=== PATIENT | female | born 1975 | race Two or more races ===

== ENCOUNTER → 2020-01-20 | Emergency (ER) | payer OTHER ==
[~2020-01-20] VITALS: Ht 175.3 cm; Wt 127.0 kg
[~2020-01-20] MED LIST: ATENOLOL50 MG PO; FAMOTIDINE40 MG PO; METRONIDAZOLE500 MG PO
== END | disposition left against medical advice (07) ==
LOC: ER 09:52
DX: Z53.20 Procedure and treatment not carried out because of patient's decision for unspecified reasons (principal)

== ENCOUNTER 2020-08-25 02:28 | Emergency (ER) | payer OTHER ==
[~2020-08-25] VITALS: Ht 175.3 cm; Wt 145.1 kg
[2020-08-25] MEDS ORDERED: FORTAMET1000 MG (02:46)
== END 2020-08-25 10:56 | disposition home or self-care (01) ==
LOC: ER 02:28
DX: A04.9 Bacterial intestinal infection, unspecified (principal); R10.32 Left lower quadrant pain

== ENCOUNTER 2025-01-18 11:27 | Inpatient (IN) | payer OTHER ==
[~2025-01-18] VITALS: Ht 274.3 cm; Wt 126.1 kg
[~2025-01-18 11:27] MED LIST changes: +FORTAMET1000 MG
[2025-01-25] MEDS ORDERED: CEFTRIAXONE SODIUM 2,000 MG VIAL ONE (06:57)
[2025-01-25] MEDS ORDERED: BUPIVACAINE HCL/MPF 0.5% 30ML VIAL ONE (06:57)
[2025-01-25] MEDS ORDERED: METRONIDAZOLE/SODIUM CHLORIDE 500 MG/100 ML PIGGYBACK IV ONE ×2 (06:57→16:18)
[2025-01-25] MEDS ORDERED: LIDOCAINE HCL 1%/EPINEPHRINE 20ML VIAL IJ ONE (06:57)
[2025-01-25] MEDS ORDERED: SUGAMMADEX SODIUM 200 MG/2 ML VIAL IV ONE (09:14)
[2025-01-25] MEDS ORDERED: MORPHINE SULFATE 4 MG/ML CARTRIDGE IV PRN (10:00)
[2025-01-25] MEDS ORDERED: ONDANSETRON HCL 2 MG/ML VIAL IV PRN (10:00)
[2025-01-25] MEDS ORDERED: 0.9 % SODIUM CHLORIDE 1,000 ML IV SCH (10:00)
[2025-01-25] MEDS ORDERED: DEXTROSE 50 % IN WATER 0.5 G/ML DISP.SYRIN IV PRN ×2 (10:00→12:45)
[2025-01-25] MEDS ORDERED: OxyCODONE HCL 5 MG TABLET (ROXICODONE) PO PRN (10:00)
[2025-01-25] MEDS ORDERED: ALBUTEROL SULFATE 3 ML/2.5 MG AMPUL.NEB IH SCH (12:00)
[2025-01-25 12:39] LABS: BASO % 0.4 % (0.1-1.2); EOS # 0.03 (0.04-0.54); EOS % 0.2 % (0.7-7.0); LYMPH # 1.34 (1.18-3.74); LYMPH % 10.7 % (19.3-53.1); MEAN PLATELET VOLUME 9.60 fl (9.4-12.4); MONO # 0.67 (0.24-0.82); MONO % 5.4 % (4.7-12.5); NEUT # 10.33 (1.56-6.13); NEUT % 82.8 % (34.0-71.1); RED CELL DISTRIBUTION WIDTH 11.7 % (11.6-14.4)
[2025-01-25] MEDS ORDERED: INSULIN LISPRO 1,000 UNIT/10 ML UNITS SUBCUTANEO PRN (12:45)
[2025-01-25] MEDS ORDERED: HYOSCYAMINE SULFATE 0.125 MG TAB.SUBL SL SCH (13:00)
[2025-01-25] MEDS ORDERED: ACETAMINOPHEN 500 MG GEL..CAP PO SCH (14:00)
[2025-01-25 14:11] LABS: BUN CREA RATIO 19.0 (7.0-25.0); CREATININE SERUM 0.69 mg/dL (0.55-1.02); GFR 89.34; OSMOLALITY SERUM 288.0 MOSM/KG (275-295)
[2025-01-25 14:16] LABS: GLUCOSE FASTING 211.0 mg/dL (65-100)
[2025-01-25] MEDS ORDERED: GABAPENTIN 300 MG CAPSULE PO ONE (16:18)
[2025-01-25] MEDS ORDERED: HYOSCYAMINE SULFATE 0.125 MG TAB.SUBL ONE (16:18)
[2025-01-25] MEDS ORDERED: METRONIDAZOLE/SODIUM CHLORIDE 500 MG/100 ML PIGGYBACK IV SCH (17:00)
[2025-01-25] MEDS ORDERED: GABAPENTIN 300 MG CAPSULE PO SCH (17:00)
[2025-01-25] MEDS ORDERED: FAMOTIDINE/PF 20 MG/2 ML VIAL IV PUSH SCH (21:00)
[2025-01-25] MEDS ORDERED: MONTELUKAST SODIUM 10 MG TABLET PO SCH (21:00)
[2025-01-25] MEDS ORDERED: CELECOXIB 200 MG CAPSULE PO SCH (21:00)
[2025-01-25 21:10] VITALS: O2SAT 94
[2025-01-26] VITALS (9 sets, daily range): BP systolic 126–172; BP diastolic 73–75; O2SAT 90–98
[2025-01-26 06:33] LABS: BASO % 0.3 % (0.1-1.2); EOS # 0.12 (0.04-0.54); EOS % 1.4 % (0.7-7.0); LYMPH # 2.78 (1.18-3.74); LYMPH % 32.1 % (19.3-53.1); MEAN PLATELET VOLUME 9.60 fl (9.4-12.4); MONO # 0.69 (0.24-0.82); MONO % 8.0 % (4.7-12.5); NEUT # 5.03 (1.56-6.13); NEUT % 58.1 % (34.0-71.1); RED CELL DISTRIBUTION WIDTH 11.6 % (11.6-14.4)
[2025-01-26 06:51] LABS: BUN CREA RATIO 16.0 (7.0-25.0); CREATININE SERUM 0.58 mg/dL (0.55-1.02); GFR 109.17; GLUCOSE FASTING 148.0 mg/dL (65-100); OSMOLALITY SERUM 288.0 MOSM/KG (275-295)
[2025-01-26] MEDS ORDERED: LOSARTAN/HYDROCHLOROTHIAZIDE 1 UDTAB TABLET PO SCH (09:00)
[2025-01-26] MEDS ORDERED: ATENOLOL 50 MG TABLET PO SCH (09:00)
[2025-01-26] MEDS ORDERED: MAGNESIUM SULFATE IN WATER 50 ML IV NR (10:00)
[2025-01-26] MEDS ORDERED: ENOXAPARIN SODIUM 40 MG/0.4 ML SYRINGE SUBCUTANEO SCH (17:00)
[2025-01-27 00:30] VITALS: BP 122/71; O2SAT 99
[2025-01-27 04:00] VITALS: O2SAT 95
[2025-01-27 08:08] VITALS: BP 130/77; O2SAT 97
[2025-01-27 08:35] LABS: BASO % 0.4 % (0.1-1.2); EOS # 0.26 (0.04-0.54); EOS % 3.7 % (0.7-7.0); LYMPH # 1.94 (1.18-3.74); LYMPH % 27.6 % (19.3-53.1); MEAN PLATELET VOLUME 9.60 fl (9.4-12.4); MONO # 0.64 (0.24-0.82); MONO % 9.1 % (4.7-12.5); NEUT # 4.13 (1.56-6.13); NEUT % 58.9 % (34.0-71.1); RED CELL DISTRIBUTION WIDTH 11.6 % (11.6-14.4)
[2025-01-27] MEDS ORDERED: ENOXAPARIN SODIUM 40 MG/0.4 ML SYRINGE SUBCUTANEO SCH (09:00)
[2025-01-27 09:08] LABS: BUN CREA RATIO 15.0 (7.0-25.0); CREATININE SERUM 0.62 mg/dL (0.55-1.02); GFR 101.08; GLUCOSE FASTING 157.0 mg/dL (65-100); OSMOLALITY SERUM 291.0 MOSM/KG (275-295)
[2025-01-27 09:10] VITALS: O2SAT 95
[2025-01-27] MEDS ORDERED: HYOSCYAMINE0.125 M1 SL (09:37)
[2025-01-27] MEDS ORDERED: CELEBREX200MG PO (09:37)
[2025-01-27] MEDS ORDERED: PEPCID AC20 MG PO (09:38)
[2025-01-27] MEDS ORDERED: PERCOCET 5-3251 EACH PO (09:38)
== END 2025-01-27 12:48 | disposition home or self-care (01) | DRG 331 ==
LOC: SURH 01-25 06:00 → O/R 01-25 06:00 → SURH 01-25 07:00
PROVIDERS: Internal Medicine Geriatric Medicine; ADMIT Surgery; ATTEND Surgery
PROC: 0DBP4ZZ Excision of Rectum, Percutaneous Endoscopic Approach (ICD-10-PCS; 2025-01-25)
PROC: 0DTN4ZZ Resection of Sigmoid Colon, Percutaneous Endoscopic Approach (ICD-10-PCS; principal; 2025-01-25 07:00)
DX: K57.32 Diverticulitis of large intestine without perforation or abscess without bleeding (principal); R19.4 Change in bowel habit

== ENCOUNTER 2025-01-30 01:20 | Inpatient (IN) | payer OTHER ==
[~2025-01-30] VITALS: Ht 297.2 cm; Wt 123.8 kg
[~2025-01-30 01:20] MED LIST changes: +CELEBREX200MG PO; +HYOSCYAMINE0.125 M1 SL; +PEPCID AC20 MG PO; +PERCOCET 5-3251 EACH PO
[2025-01-30] MEDS ORDERED: COZAAR100 MG PO (02:03)
--- NOTE | 2025-01-30 02:03 | NUR ---
PACIENTE ALERTA Y ORIENTADA X3. REFIERE VENIR POR DOLOR ABDOMINAL DESDE HOY. REFIERE QUE FUE OPERADA DE LOS INTESTINOS POR DR IRWIN HACEN 4 HUANG. SE ESTIMAN VITALES Y SE UBICA.
[2025-01-30] MEDS ORDERED: PIPERACILLIN/TAZOBACTAM SODIUM 3.375 GM VIAL IV ONE ×3 (03:46→14:39)
[2025-01-30] MEDS ORDERED: MORPHINE SULFATE 2 MG/ML SYRINGE IV ONE (04:00)
--- NOTE | 2025-01-30 04:21 | NUR ---
SE ORIENTA PACIENTE SOBRE TX MEDICO ORDENADO POR . SE COLECTAN MUESTRAS DE LABORATORIOS BAJO MEDIDAS ASEPTCIAS Y SE CANALIZA PACIENTE. SE ADMINISTRA MEDICAMENTO NADER ORDEN MEDICA.
[2025-01-30 04:53] LABS: INR 0.98
[2025-01-30 04:55] LABS: ALT/SGPT 62.0 U/L (12-78); AST/SGOT 41.0 U/L (15-37); BILIRUBIN TOTAL 0.33 mg/dL (0.3-1.2); BUN CREA RATIO 27.0 (7.0-25.0); CREATININE SERUM 0.63 mg/dL (0.55-1.02); GFR 99.23; GLOBULINA 4.3 G/DL (2.4-3.5); GLUCOSE FASTING 156.0 mg/dL (65-100); OSMOLALITY SERUM 284.0 MOSM/KG (275-295)
[2025-01-30] MEDS ORDERED: ONDANSETRON HCL 4 MG in 0.9 % SODIUM CHLORIDE 50 ML IV PRN (07:45)
[2025-01-30] MEDS ORDERED: MORPHINE SULFATE 4 MG/ML CARTRIDGE IV PRN (07:45)
[2025-01-30] MEDS ORDERED: SODIUM CHLORIDE 0.45 % 1,000 ML IV SCH (07:45)
--- NOTE | 2025-01-30 08:44 | NUR ---
PACIENTE ALERTA Y ORIENTADA X3 EN CAMA A NIVEL DE PISO JUNTO CON BARRANDAS ELEVADAS. CANALIZADA CON #[id number] EN RT ARM, PATENTE, KESHAWN DE EDEMA Y ERITEMA Y BAJANDO 0.9NSS A 125ML/HR. PENDIENTE A CONSULTA DR. IRWIN DE CIRUGIA.
[2025-01-30] MEDS ORDERED: FAMOTIDINE/PF 20 MG in 0.9 % SODIUM CHLORIDE 8 ML IV PUSH SCH (09:00)
[2025-01-30] MEDS ORDERED: ENOXAPARIN SODIUM 40 MG/0.4 ML SYRINGE SUBCUTANEO SCH ×2 (09:00→17:00)
[2025-01-30] MEDS ORDERED: POLYETHYLENE GLYCOL 3350 17 GM BLIST.PACK PO SCH (09:28)
[2025-01-30] MEDS ORDERED: ENOXAPARIN SODIUM 40 MG/0.4 ML SYRINGE SUBCUTANEO ONE (10:04)
[2025-01-30] MEDS ORDERED: FAMOTIDINE/PF 20 MG/2 ML VIAL ONE (10:04)
[2025-01-30] MEDS ORDERED: ONDANSETRON HCL 2 MG/ML VIAL ONE ×2 (10:04→21:24)
[2025-01-30 11:09] LABS: BASO % 0.3 % (0.1-1.2); EOS # 0.34 (0.04-0.54); EOS % 4.8 % (0.7-7.0); LYMPH # 2.24 (1.18-3.74); LYMPH % 31.4 % (19.3-53.1); MEAN PLATELET VOLUME 9.10 fl (9.4-12.4); MONO # 0.67 (0.24-0.82); MONO % 9.4 % (4.7-12.5); NEUT # 3.86 (1.56-6.13); NEUT % 54.0 % (34.0-71.1); RED CELL DISTRIBUTION WIDTH 11.7 % (11.6-14.4)
[2025-01-30 11:22] VITALS: BP 115/65
[2025-01-30 11:51] LABS: BUN CREA RATIO 25.0 (7.0-25.0); CREATININE SERUM 0.52 mg/dL (0.55-1.02); GFR 123.83; GLUCOSE FASTING 142.0 mg/dL (65-100); OSMOLALITY SERUM 284.0 MOSM/KG (275-295)
[2025-01-30] MEDS ORDERED: DEXTROSE 50 % IN WATER 0.5 G/ML DISP.SYRIN IV PRN (13:45)
[2025-01-30] MEDS ORDERED: PIPERACILLIN/TAZOBACTAM SODIUM 3.375 GM in 0.9 % SODIUM CHLORIDE 100 ML IV SCH ×2 (13:45→14:00)
[2025-01-30] MEDS ORDERED: INSULIN LISPRO 1,000 UNIT/10 ML UNITS SUBCUTANEO PRN (13:45)
[2025-01-30] MEDS ORDERED: ENALAPRILAT DIHYDRATE 1.25 MG/ML VIAL IV PRN (13:45)
[2025-01-31 00:28] VITALS: BP 127/74; O2SAT 97
[2025-01-31] MEDS ORDERED: ATENOLOL 50 MG TABLET PO SCH (09:00)
[2025-01-31] MEDS ORDERED: LOSARTAN/HYDROCHLOROTHIAZIDE 1 UDTAB TABLET PO SCH (09:00)
[2025-01-31 09:17] VITALS: BP 137/86; O2SAT 96
[2025-01-31 10:10] LABS: URINE APPEARANCE Clear; URINE BILIRRUBIN Negative (NEGATIVE); URINE BLOOD Negative; URINE COLOR Yellow; URINE GLUCOSE Negative (NEGATIVE); URINE KETONE Negative (NEGATIVE); URINE LEUKOCYTE Small; URINE NITRATE Negative; URINE PROTEIN Negative (NEGATIVE); URINE UROBILINOGEN 0.2 E.U./dl
[2025-01-31 10:18] LABS: URINE BACTERIA 17.9 uL (0.0-1933); URINE EPITHELIAL CELLS 32.3 uL (0.0-38.8); URINE RBC 7.7 uL (0.0-20.8); URINE WBC 92.6 uL (0.0-23.2)
[2025-01-31 11:22] LABS: TYPE CELLS SQUAMOUS; URINE CAST 0.43 uL (0.0-1.40)
[2025-01-31 14:18] LABS: BASO % 0.4 % (0.1-1.2); EOS # 0.33 (0.04-0.54); EOS % 4.6 % (0.7-7.0); LYMPH # 2.17 (1.18-3.74); LYMPH % 30.1 % (19.3-53.1); MEAN PLATELET VOLUME 10.00 fl (9.4-12.4); MONO # 0.56 (0.24-0.82); MONO % 7.8 % (4.7-12.5); NEUT # 4.10 (1.56-6.13); NEUT % 56.8 % (34.0-71.1); RED CELL DISTRIBUTION WIDTH 11.7 % (11.6-14.4)
[2025-01-31 15:03] LABS: ALT/SGPT 120.0 U/L (12-78); AST/SGOT 110.0 U/L (15-37); BILIRUBIN TOTAL 0.38 mg/dL (0.3-1.2); BUN CREA RATIO 25.0 (7.0-25.0); CREATININE SERUM 0.67 mg/dL (0.55-1.02); GFR 92.43; GLOBULINA 3.6 G/DL (2.4-3.5)
[2025-01-31 15:04] LABS: GLUCOSE FASTING 202.0 mg/dL (65-100); OSMOLALITY SERUM 281.0 MOSM/KG (275-295)
[2025-01-31] MEDS ORDERED: ENOXAPARIN SODIUM 40 MG/0.4 ML SYRINGE SUBCUTANEO SCH (17:00)
[2025-01-31 19:39] VITALS: BP 130/75; O2SAT 96
[2025-02-01 01:34] VITALS: BP 120/83; O2SAT 96
[2025-02-01 09:22] VITALS: BP 146/75; O2SAT 99
== END 2025-02-01 11:50 | disposition home or self-care (01) | DRG 948 ==
LOC: ER 01:21 → SEC-K 09:09 → MEDI 09:09
PROVIDERS: Internal Medicine Geriatric Medicine; Internal Medicine Infectious Disease; Preventive Medicine Public Health & General Preventive Medicine; ADMIT Surgery; ATTEND Surgery
PROC: BW21YZZ Computerized Tomography (CT Scan) of Abdomen and Pelvis using Other Contrast (ICD-10-PCS; principal; 2025-01-30)
DX: G89.18 Other acute postprocedural pain (principal); R10.32 Left lower quadrant pain; K59.00 Constipation, unspecified; I10 Essential (primary) hypertension; E11.9 Type 2 diabetes mellitus without complications; E78.5 Hyperlipidemia, unspecified; Z79.84 Long term (current) use of oral hypoglycemic drugs

== ENCOUNTER 2025-03-04 16:44 | Inpatient (IN) | payer OTHER ==
[~2025-03-04] VITALS: Ht 175.3 cm; Wt 123.8 kg
[~2025-03-04 16:44] MED LIST changes: +COZAAR100 MG PO
[2025-03-04] MEDS ORDERED: GLIMEPIRIDE1 MG (19:19)
--- NOTE | 2025-03-04 19:25 | NUR ---
PACIENTE ALERTA Y ORIENTADA X3. REFIERE TEO SIDO OPERADA EL POR DR. IRWIN. REFIERE COMENZAR CON DOLOR ABDOMINAL DESDE EL TERRENCE DE HOY, REFIERE UN EPISODIO DE SANGRADO RECTAL JERAMIE EL TERRENCE DE ED. SE FRANCISCO S/V Y SE UBICA.
[2025-03-04] MEDS ORDERED: FAMOTIDINE/PF 20 MG in 0.9 % SODIUM CHLORIDE 8 ML IV PUSH ONE (20:15)
[2025-03-04] MEDS ORDERED: ONDANSETRON HCL 4 MG in 0.9 % SODIUM CHLORIDE 50 ML IV ONE (20:15)
[2025-03-04] MEDS ORDERED: 0.9 % SODIUM CHLORIDE 1,000 ML IV SCH (20:15)
[2025-03-04] MEDS ORDERED: MORPHINE SULFATE 4 MG/ML CARTRIDGE IV ONE (20:15)
[2025-03-04] MEDS ORDERED: FAMOTIDINE/PF 20 MG/2 ML VIAL ONE (21:11)
[2025-03-04] MEDS ORDERED: ONDANSETRON HCL 2 MG/ML VIAL ONE (21:11)
[2025-03-04 22:00] LABS: BASO % 0.3 % (0.1-1.2); EOS # 0.19 (0.04-0.54); EOS % 2.2 % (0.7-7.0); LYMPH # 3.11 (1.18-3.74); LYMPH % 36.2 % (19.3-53.1); MEAN PLATELET VOLUME 9.40 fl (9.4-12.4); MONO # 0.66 (0.24-0.82); MONO % 7.7 % (4.7-12.5); NEUT # 4.57 (1.56-6.13); NEUT % 53.4 % (34.0-71.1); RED CELL DISTRIBUTION WIDTH 12.9 % (11.6-14.4)
[2025-03-04 22:04] LABS: ERYTHROCYTE SEDIMENTATION RATE 32 mm/hr (0-30)
--- NOTE | 2025-03-04 22:19 | NUR ---
SE ORIENTA PACIENTE SOBRE TX MEDICPO Y ETSE REFIERE ENTENDER Y7A CEPTAR EL MMISMO. SE PROCEDEE A SVITLANA MUESTRAS DE LAB BAJO MEDIDAS ASEPTICAS. SE PROCEDE A CANALZIAR PACIENTE BAJO MEIDDIAS ASEPTICAS. SE PROCEDE A ADMI ISTRAR MEDICAMENTO NADER ORDEN MEDICA BAJO MEIDDAS ASEPTICAS.
[2025-03-04 22:20] LABS: URINE APPEARANCE Cloudy; URINE BILIRRUBIN Negative (NEGATIVE); URINE BLOOD Trace; URINE COLOR Yellow; URINE GLUCOSE Negative (NEGATIVE); URINE KETONE Trace (NEGATIVE); URINE LEUKOCYTE Moderate; URINE NITRATE Positive; URINE PROTEIN Trace (NEGATIVE); URINE UROBILINOGEN 0.2 E.U./dl
[2025-03-04 22:21] LABS: URINE EPITHELIAL CELLS 16.0 uL (0.0-38.8); URINE RBC 12.7 uL (0.0-20.8); URINE WBC 939.2 uL (0.0-23.2)
[2025-03-04 22:22] LABS: URINE CAST 1.13 uL (0.0-1.40)
[2025-03-04 22:24] LABS: ALT/SGPT 24.0 U/L (12-78); AST/SGOT 8.0 U/L (15-37); BILIRUBIN TOTAL 0.31 mg/dL (0.3-1.2); BUN CREA RATIO 34.0 (7.0-25.0); CREATININE SERUM 0.74 mg/dL (0.55-1.02); GFR 82.41; GLOBULINA 4.4 G/DL (2.4-3.5); GLUCOSE FASTING 123.0 mg/dL (65-100); OSMOLALITY SERUM 285.0 MOSM/KG (275-295)
[2025-03-05] MEDS ORDERED: PIPERACILLIN/TAZOBACTAM SODIUM 3.375 GM in DEXTROSE 5 % IN WATER 100 ML IV SCH (00:03)
[2025-03-05] MEDS ORDERED: ATENOLOL 50 MG TABLET PO ONE (00:15)
[2025-03-05] MEDS ORDERED: INSULIN LISPRO 1,000 UNIT/10 ML UNITS SUBCUTANEO PRN ×2 (00:15→13:45)
[2025-03-05] MEDS ORDERED: ACETAMINOPHEN 500 MG GEL..CAP PO PRN (00:15)
[2025-03-05] MEDS ORDERED: MORPHINE SULFATE 4 MG/ML CARTRIDGE IV PRN (00:15)
[2025-03-05] MEDS ORDERED: 0.9 % SODIUM CHLORIDE 1,000 ML IV SCH (00:15)
[2025-03-05] MEDS ORDERED: DEXTROSE 50 % IN WATER 0.5 G/ML DISP.SYRIN IV PRN ×2 (00:15→13:45)
[2025-03-05] MEDS ORDERED: ONDANSETRON HCL 4 MG in 0.9 % SODIUM CHLORIDE 50 ML IV PRN (00:15)
[2025-03-05] MEDS ORDERED: FAMOTIDINE/PF 20 MG in 0.9 % SODIUM CHLORIDE 8 ML IV PUSH SCH ×2 (09:00→21:00)
[2025-03-05] MEDS ORDERED: LOSARTAN POTASSIUM 100 MG TABLET PO SCH (09:00)
[2025-03-05 10:38] LABS: INR 0.99
[2025-03-05] MEDS ORDERED: KETOROLAC TROMETHAMINE 30 MG VIAL IV STA (10:42)
[2025-03-05 10:44] VITALS: BP 120/59; O2SAT 100
[2025-03-05 10:48] VITALS: BP 130/85; O2SAT 99
[2025-03-05] MEDS ORDERED: ENALAPRILAT DIHYDRATE 1.25 MG/ML VIAL IV PRN (13:45)
[2025-03-05] MEDS ORDERED: ATENOLOL 50 MG TABLET PO NR (14:00)
[2025-03-05] MEDS ORDERED: LOSARTAN/HYDROCHLOROTHIAZIDE 1 TAB TABLET PO NR (14:00)
[2025-03-05] MEDS ORDERED: ENOXAPARIN SODIUM 40 MG/0.4 ML SYRINGE SUBCUTANEO NR (14:00)
[2025-03-05 16:00] VITALS: BP 128/78; O2SAT 98
[2025-03-05] MEDS ORDERED: LACTOBACILLUS ACIDOPHILUS 1 CAP CAP PO SCH (17:00)
[2025-03-05] MEDS ORDERED: KETOROLAC TROMETHAMINE 30 MG VIAL IV SCH (21:00)
[2025-03-06 00:32] VITALS: BP 113/74; O2SAT 97
[2025-03-06 08:32] VITALS: BP 109/68; O2SAT 99
[2025-03-06] MEDS ORDERED: LOSARTAN/HYDROCHLOROTHIAZIDE 1 TAB TABLET PO SCH (09:00)
[2025-03-06] MEDS ORDERED: POLYETHYLENE GLYCOL 3350 17 GM BLIST.PACK PO SCH (09:00)
[2025-03-06] MEDS ORDERED: ATENOLOL 50 MG TABLET PO SCH (09:00)
[2025-03-06] MEDS ORDERED: ENOXAPARIN SODIUM 40 MG/0.4 ML SYRINGE SUBCUTANEO SCH (09:00)
[2025-03-06 15:57] VITALS: BP 117/71; O2SAT 96
[2025-03-07] VITALS: BP 119/74; O2SAT 98
[2025-03-07] MEDS ORDERED: DICY20TA PO (08:22)
[2025-03-07] MEDS ORDERED: DICLOFENAC SODI75 MG PO (08:22)
[2025-03-07] MEDS ORDERED: PEPCID AC20 MG PO (08:23)
== END 2025-03-07 10:15 | disposition home or self-care (01) | DRG 394 ==
LOC: ER 16:45 → SURG 03-05 00:11
PROVIDERS: General Practice; ADMIT Surgery; ATTEND Surgery
PROC: BW21ZZZ Computerized Tomography (CT Scan) of Abdomen and Pelvis (ICD-10-PCS; principal; 2025-03-04)
DX: K55.069 Acute infarction of intestine, part and extent unspecified (principal); A04.9 Bacterial intestinal infection, unspecified; K57.32 Diverticulitis of large intestine without perforation or abscess without bleeding; N39.0 Urinary tract infection, site not specified; R10.32 Left lower quadrant pain; E11.9 Type 2 diabetes mellitus without complications; E66.9 Obesity, unspecified; G47.30 Sleep apnea, unspecified; R10.24 Suprapubic pain